=== PATIENT | female | born 1950 | race Asian ===

== ENCOUNTER 2017-06-01 22:53 | Inpatient (IN) | payer MEDICARE, MEDICAID ==
[~2017-06-01] VITALS: Ht 160 cm; Wt 58.5 kg
[~2017-06-01 22:53] MED LIST: UNOBMED
[2017-06-01] MEDS ORDERED: VITAMIN D1000 UNI1 ORAL (22:59)
[2017-06-01] MEDS ORDERED: Sodium Chloride 500ML 500 ML IV ONE (23:08)
[2017-06-01 23:25] LABS: BASOPHILS % (AUTO) 1.7 % (0.0-2.0); EOSINOPHILS % (AUTO) 1.2 % (0.0-3.0); LYMPHOCYTES % (AUTO) 43.2 % (20.0-45.0); MEAN CORPUSCULAR HEMOGLOBIN 32.1 PG (27.0-31.0); MEAN CORPUSCULAR HGB CONC 34.6 G/DL (32.0-36.0); MEAN CORPUSCULAR VOLUME 93 FL (80-99); MEAN PLATELET VOLUME 7.4 FL (6.5-10.1); MONOCYTES % (AUTO) 7.1 % (1.0-10.0); NEUTROPHILS % (AUTO) 46.8 % (45.0-75.0); PLATELET COUNT 222 K/UL (150-450); RED BLOOD COUNT 4.62 M/UL (4.20-5.40); WHITE BLOOD COUNT 6.4 K/UL (4.8-10.8)
[2017-06-01 23:29] LABS: ANION GAP 11 mmol/L (5-15); CALCIUM 10.1 MG/DL (8.5-10.1); CARBON DIOXIDE 28 MMOL/L (21-32); CHLORIDE 102 MMOL/L (98-107); CREATININE 0.9 MG/DL (0.55-1.30); GLOMERULAR FILTRATION RATE > 60 mL/min (>60); POTASSIUM 4.1 MMOL/L (3.5-5.1); SODIUM 141 MMOL/L (136-145)
[2017-06-01 23:43] LABS: ALANINE AMINOTRANSFERASE 38 U/L (12-78); ALBUMIN/GLOBULIN RATIO 1.2 (1.0-2.7); ASPARTATE AMINO TRANSFERASE 26 U/L (15-37); CKMB < 0.5 NG/ML (0.0-3.6)
[2017-06-02] VITALS (7 sets, daily range): BP systolic 108–150; BP diastolic 67–88
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
[2017-06-02] MEDS: Aspirin Baby 81mg ORAL ONE ×2 (01:05→01:07)
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
[2017-06-02] MEDS ORDERED: ATORVASTATIN CA20 MG ORAL (14:18)
[2017-06-02] MEDS ORDERED: DEXILANT60 MG ORAL (14:18)
[2017-06-02] MEDS: Vitamin D 1000 IU Tab ORAL SCH (15:26)
--- NOTE | 2017-06-02 16:27 | Diagnostic Imaging Report ---
Indication: Chest pain Technique: One view of the chest Comparison: 06/27/2014 Findings: There is mild interstitial prominence and bronchial wall thickening, particularly centrally. Heart size upper limits of normal. The pleural spaces are clear. No significant interim change. Impression: Mild interstitial prominence and bronchial wall thickening. Suspect on the basis of chronic bronchitis changes, but acute congestion not completely excludable. This agrees with the preliminary interpretation provided by the emergency room physician
[2017-06-02] MEDS: Heparin 5000 units/ml inj SUBQ SCH (21:23)
[2017-06-03] VITALS: BP 117/63
[2017-06-03 04:00] VITALS: BP 110/66
[2017-06-03 08:00] VITALS: BP 117/79
[2017-06-03 08:29] LABS: BASOPHILS % (AUTO) 3.3 % (0.0-2.0); EOSINOPHILS % (AUTO) 2.9 % (0.0-3.0); LYMPHOCYTES % (AUTO) 32.2 % (20.0-45.0); MEAN CORPUSCULAR HEMOGLOBIN 31.2 PG (27.0-31.0); MEAN CORPUSCULAR VOLUME 95 FL (80-99); MEAN PLATELET VOLUME 7.1 FL (6.5-10.1); MONOCYTES % (AUTO) 12.8 % (1.0-10.0); NEUTROPHILS % (AUTO) 48.8 % (45.0-75.0); PLATELET COUNT 191 K/UL (150-450); RED BLOOD COUNT 4.29 M/UL (4.20-5.40); RED CELL DISTRIBUTION WIDTH 11.1 % (11.6-14.8); WHITE BLOOD COUNT 5.6 K/UL (4.8-10.8)
[2017-06-03 08:44] LABS: ANION GAP 8 mmol/L (5-15); CALCIUM 9.2 MG/DL (8.5-10.1); CARBON DIOXIDE 28 MMOL/L (21-32); CHLORIDE 106 MMOL/L (98-107); CREATININE 0.7 MG/DL (0.55-1.30); GLOMERULAR FILTRATION RATE > 60 mL/min (>60); POTASSIUM 4.1 MMOL/L (3.5-5.1); SODIUM 141 MMOL/L (136-145)
[2017-06-03] MEDS: Heparin 5000 units/ml inj SUBQ SCH ×2 (09:00→20:54)
[2017-06-03] MEDS ORDERED: Albuterol/Ipratropium 3ml neb HHN PRN (09:00)
[2017-06-03] MEDS ORDERED: guaiFENesin 100mg/5ml Liq ud ORAL PRN (09:00)
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
[2017-06-03] MEDS: Vitamin D 1000 IU Tab ORAL SCH (09:23)
[2017-06-03 12:00] VITALS: BP 105/63
--- NOTE | 2017-06-03 15:19 | Cardiac Electrophysiology PN ---
Subjective Subjective Consult dictated. [id number] Objective Last 24 Hour Vital Signs Date Time Temp Pulse Resp B/P (MAP) Pulse Ox O2 Delivery O2 Flow Rate FiO2 06/03/17 12:00 64 06/03/17 12:00 97.1 63 19 105/63 95 Room Air 06/03/17 10:00 64 18 Room Air 06/03/17 08:00 97.7 66 20 117/79 96 Room Air 06/03/17 08:00 59 06/03/17 04:00 97.3 55 18 110/66 94 Room Air 06/03/17 04:00 66 06/03/17 00:00 61 06/03/17 00:00 97.7 64 18 117/63 96 Room Air 06/02/17 20:00 76 06/02/17 19:56 97.3 63 20 111/74 95 Room Air 06/02/17 15:43 97.0 68 18 114/71 97 Room Air 06/02/17 15:22 81 Laboratory Tests Test 06/02/17 16:50 06/03/17 07:40 Troponin I 0.099 ng/mL (0.000-0.056) 0.082 ng/mL (0.000-0.056) White Blood Count 5.6 K/UL (4.8-10.8) Red Blood Count 4.29 M/UL (4.20-5.40) Hemoglobin 13.4 G/DL (12.0-16.0) Hematocrit 40.6 % (37.0-47.0) Mean Corpuscular Volume 95 FL (80-99) Mean Corpuscular Hemoglobin 31.2 PG (27.0-31.0) H Mean Corpuscular Hemoglobin Concent 33.0 G/DL (32.0-36.0) Red Cell Distribution Width 11.1 % (11.6-14.8) L Platelet Count 191 K/UL (150-450) Mean Platelet Volume 7.1 FL (6.5-10.1) Neutrophils (%) (Auto) 48.8 % (45.0-75.0) Lymphocytes (%) (Auto) 32.2 % (20.0-45.0) Monocytes (%) (Auto) 12.8 % (1.0-10.0) H Eosinophils (%) (Auto) 2.9 % (0.0-3.0) Basophils (%) (Auto) 3.3 % (0.0-2.0) H Sodium Level 141 MMOL/L (136-145) Potassium Level 4.1 MMOL/L (3.5-5.1) Chloride Level 106 MMOL/L (98-107) Carbon Dioxide Level 28 MMOL/L (21-32) Anion Gap 8 mmol/L (5-15) Blood Urea Nitrogen 16 mg/dL (7-18) Creatinine 0.7 MG/DL (0.55-1.30) Estimat Glomerular Filtration Rate > 60 mL/min (>60) Glucose Level 105 MG/DL (74-106) Calcium Level 9.2 MG/DL (8.5-10.1) SERAFIN ROSENTHAL Jun 03, 2017 15:19
[2017-06-03 16:00] VITALS: BP 137/85
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
[2017-06-03] MEDS ORDERED: SYSTANE BALANCE10 M1 OP (20:10)
[2017-06-03 20:28] VITALS: BP 129/75
[2017-06-03] MEDS ORDERED: Artificial Tears 1.4% Op Soln BOTH EYES PRN (20:30)
[2017-06-03] MEDS: Metoprolol 25mg tab ORAL SCH (20:53)
[2017-06-04 00:44] VITALS: BP_SYST 126; BP_SYST 129; BP_DIAS 75; BP_DIAS 82
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
[2017-06-04 05:00] VITALS: BP 105/50
[2017-06-04 08:36] VITALS: BP 107/72
[2017-06-04] MEDS: Aspirin Baby 81mg ORAL SCH (10:03)
[2017-06-04] MEDS: Vitamin D 1000 IU Tab ORAL SCH (10:03)
[2017-06-04] MEDS: Heparin 5000 units/ml inj SUBQ SCH ×2 (10:12→20:39)
[2017-06-04] MEDS: Metoprolol 25mg tab ORAL SCH ×2 (10:13→20:39)
[2017-06-04 11:43] VITALS: BP 112/76
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
[2017-06-04 15:50] VITALS: BP 108/64
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
[2017-06-04 20:00] VITALS: BP 108/70
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
[2017-06-05 00:26] VITALS: BP 107/78
[2017-06-05 07:50] LABS: HEMOGLOBIN A1C 5.9 % (4.3-6.0)
[2017-06-05 08:11] LABS: CHOLESTEROL 187 MG/DL (< 200); CHOLESTEROL/HDL RATIO 3.5 (3.3-4.4); THYROID STIMULATING HORMONE 1.232 uiU/mL (0.358-3.740)
[2017-06-05 08:59] VITALS: BP 105/63
[2017-06-05] MEDS: Metoprolol 25mg tab ORAL SCH ×2 (09:00→21:37)
[2017-06-05] MEDS: Aspirin Baby 81mg ORAL SCH (09:00)
[2017-06-05 09:32] LABS: BASOPHILS % (AUTO) 0.9 % (0.0-2.0); EOSINOPHILS % (AUTO) 2.6 % (0.0-3.0); LYMPHOCYTES % (AUTO) 45.4 % (20.0-45.0); MEAN CORPUSCULAR HEMOGLOBIN 31.4 PG (27.0-31.0); MEAN CORPUSCULAR HGB CONC 33.7 G/DL (32.0-36.0); MEAN CORPUSCULAR VOLUME 93 FL (80-99); MEAN PLATELET VOLUME 7.4 FL (6.5-10.1); MONOCYTES % (AUTO) 5.8 % (1.0-10.0); NEUTROPHILS % (AUTO) 45.3 % (45.0-75.0); PLATELET COUNT 217 K/UL (150-450); RED BLOOD COUNT 4.35 M/UL (4.20-5.40); RED CELL DISTRIBUTION WIDTH 10.8 % (11.6-14.8)
--- NOTE | 2017-06-05 09:46 | Diagnostic Imaging Report ---
Clinical history: Acute shortness of breath Technique: Portable AP chest radiograph was obtained. Comparison: 06/01/17 Findings: An improved inspiratory effort is noted. Mild scattered linear densities may reflect changes of chronic lung disease/chronic bronchitis. The bronchial markings are prominent which may reflect small airway disease. No focal consolidation. Postoperative clips are noted projecting over the right upper lung and lower neck. There is otherwise no significant interval change in the interval, allowing for differences in technique and positioning. Impression: Prominent bronchial markings may reflect small airway disease/chronic bronchitis. No evidence of pneumonia. Postoperative clips projecting over the right upper lung and lower neck.
[2017-06-05] MEDS: Vitamin D 1000 IU Tab ORAL SCH (09:52)
[2017-06-05] MEDS: Heparin 5000 units/ml inj SUBQ SCH ×2 (09:56→21:40)
[2017-06-05 10:00] LABS: ALANINE AMINOTRANSFERASE 26 U/L (12-78); ALBUMIN/GLOBULIN RATIO 1.2 (1.0-2.7); ANION GAP 7 mmol/L (5-15); ASPARTATE AMINO TRANSFERASE 22 U/L (15-37); CALCIUM 9.3 MG/DL (8.5-10.1); CARBON DIOXIDE 28 MMOL/L (21-32); CHLORIDE 107 MMOL/L (98-107); CREATININE 0.8 MG/DL (0.55-1.30); GLOMERULAR FILTRATION RATE > 60 mL/min (>60); POTASSIUM 4.3 MMOL/L (3.5-5.1); SODIUM 142 MMOL/L (136-145); TOTAL PROTEIN 7.1 G/DL (6.4-8.2)
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
[2017-06-05 11:54] VITALS: BP 107/64
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
--- NOTE | 2017-06-05 15:46 | Cardiology Report ---
APPROVED REPORT EKG Measurement Heart [id number] MD [id number] Normal sinus rhythm Normal ECG
[2017-06-05 16:01] VITALS: BP 105/53
[2017-06-05 20:00] VITALS: BP 106/68
[2017-06-06] VITALS: BP 95/32
[2017-06-06 04:14] VITALS: BP 101/57
[2017-06-06 08:10] VITALS: BP 115/73
[2017-06-06] MEDS: Metoprolol 25mg tab ORAL SCH (09:00)
[2017-06-06] MEDS: Vitamin D 1000 IU Tab ORAL SCH (09:14)
[2017-06-06] MEDS: Aspirin Baby 81mg ORAL SCH (09:14)
[2017-06-06] MEDS: Heparin 5000 units/ml inj SUBQ SCH (09:16)
--- NOTE | 2017-06-06 10:51 | Cardiology Report ---
APPROVED REPORT EXAM: Two-dimensional and M-mode echocardiogram with Doppler and color Doppler. INDICATION Left ventricular function M-Mode DIMENSIONS IVSd1.2 (0.7-1.1cm)Left Atrium (MM)3.0 (1.6-4.0cm) LVDd3.2 (3.5-5.6cm)Aortic Root3.6 (2.0-3.7cm) PWd1.1 (0.7-1.1cm)Aortic Cusp Exc.1.5 (1.5-2.0cm) LVDs1.4 (2.5-4.0cm) PWs1.6 cm Normal left ventricular chamber size, systolic function and wall motion. Left ventricular ejection fraction estimated to be 55-60%. Mild left ventricular hypertrophy. Anterior Echo-free space, may be due to pericardial fat or effusion. All other cardiac chamber sizes are within normal limits. Mild focal aortic valve sclerosis with adequate cusp excursion. Mildly thickened mitral valve leaflets with normal excursion. Mild mitral annulus and aortic root calcification. Pulmonic valve not well visualized. Normal tricuspid valve structure. IVC dilated at 2.3 cm with physiologic collapse suggestive of increased RA pressure. A color flow and spectral Doppler study was performed and revealed: No aortic regurgitation. Mild mitral regurgitation. Mitral diastolic velocities suggest reduced left ventricular relaxation c/w mild LV diastolic dysfunction (Grade I ). Mild tricuspid regurgitation. Tricuspid systolic velocities suggests peak right ventricular systolic pressure of 38 mmHg, consistent with mild pulmonary hypertension. Mild pulmonic regurgitation present.
[2017-06-06 12:41] VITALS: BP 105/62
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
[2017-06-06] MEDS ORDERED: Lexiscan 0.4mg/5ml syringe IV ONE (14:00)
[2017-06-06] MEDS ORDERED: ASPIRIN81 MG ORAL (14:14)
[2017-06-06 16:34] VITALS: BP 103/61
--- NOTE | 2017-06-06 16:39 | Diagnostic Imaging Report ---
Indications: Chest pain, hypertension Technique: Single day single isotope protocol utilized. Initially, resting images obtained using IV administration 10.2 millicuries 99M technetium Myoview. Subsequently, patient underwent lexiscan stress testing. See cardiology report for details. During DEXA scan infusion, IV administration 31.7 mCi 99 M technetium Myoview. SPECT and planar images obtained. SPECT images gated to 8 phases of the cardiac cycle were also obtained, and reformatted into cine images for evaluation of ejection fraction. Comparison: None Findings: Presence or absence of symptoms during infusion is not described on the cardiology report. Per cardiology report, resting EKG demonstrates normal sinus rhythm. During infusion, nonspecific T-wave inversions were seen in the 2-C3, aVF, lead 3. Imaging demonstrates no fixed nor reversible post stress perfusion defects. Normal cardiac chamber size . Calculated post stress ejection fraction 87%. No focal wall motion abnormality Impression: Nonischemic clinical response to pharmacologic stress, per cardiology report Nonischemic electrocardiographic response to pharmacologic stress, per cardiology report No imaging findings to suggest ischemia, at level of stress achieved. Calculated post stress ejection fraction greater than 70%
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
== END 2017-06-06 20:20 | disposition home or self-care (01) | DRG 917 ==
LOC: EDBD 22:53 → EMR 23:21 → 2E 23:26 → EDBEDREQ 06-02 00:13
DX: T59.811A Toxic effect of smoke, accidental (unintentional), initial encounter (principal); I21.4 Non-ST elevation (NSTEMI) myocardial infarction; I95.9 Hypotension, unspecified; I27.20 Pulmonary hypertension, unspecified; J70.5 Respiratory conditions due to smoke inhalation; I51.89 Other ill-defined heart diseases; I34.0 Nonrheumatic mitral (valve) insufficiency; R06.02 Shortness of breath; Y92.039 Unspecified place in apartment as the place of occurrence of the external cause; Z87.891 Personal history of nicotine dependence; K21.9 Gastro-esophageal reflux disease without esophagitis; Z88.0 Allergy status to penicillin; R07.9 Chest pain, unspecified; E78.5 Hyperlipidemia, unspecified; I10 Essential (primary) hypertension; J40 Bronchitis, not specified as acute or chronic
CPT/HCPCS: 36415; 71010; 78452; 80048; 80053; 80061; 82550; 82553; 83036; 83880; 84443; 84484; 85025; 93005; 93017; 93306; 94664; 99285; J2785